=== PATIENT | male | born 1995 | race Caucasian/White ===

== ENCOUNTER → 2019-06-03 | Outpatient (CLI) | payer OTHER ==
--- NOTE | 2019-06-03 19:00 | REP ---
Clinical: Lower back pain. Technique: AP, lateral, bilateral oblique and coned-down views of the lumbosacral spine. Findings: Alignment and lordosis maintained. No acute fracture / compression injury or subluxation. No spondylolysis or spondylolisthesis. Lateral views demonstrate moderate disc space narrowing versus partial sacralization at the L5-S1 level. Impression: Moderate disc space narrowing versus partial sacralization at L5-S1. Otherwise normal lumbosacral spine radiograph series. Electronically Signed by Nahum Vu MD 06/03/2019 06:52 P
== END ==
LOC: M LRY 17:11
PROVIDERS: ATTEND Physician Assistant
DX: S39.92XA Unspecified injury of lower back, initial encounter (principal); M54.5 Low back pain; X58.XXXA Exposure to other specified factors, initial encounter; Y92.9 Unspecified place or not applicable
CPT/HCPCS: 72110; 96372; G0463; J1885

== ENCOUNTER → 2019-11-04 | Outpatient (CLI) | payer OTHER ==
[~2019-11-04] MED LIST: FLON1SPR NARES; GASTROGRAFIN SOLUTION 30ML (Q9963) As Ordered ONE; ISOVUE-370 76% 100ML VIAL (Q9967) As Ordered ONE; ZYRTTAB8 PO
--- NOTE | 2019-11-04 11:47 | REPVR ---
PROCEDURE INFORMATION: Exam: CT Neck With Contrast Exam date and time: 11/04/2019 10:58 AM Age: 24 years old Clinical indication: Pain; Other: Lyphadenopathy; Additional info: Lyphadenopathy, eval for possible lymphoma TECHNIQUE: Imaging protocol: Computed tomography images of the neck with intravenous contrast. Radiation optimization: All CT scans at this facility use at least one of these dose optimization techniques: automated exposure control; mA and/or kV adjustment per patient size (includes targeted exams where dose is matched to clinical indication); or iterative reconstruction. Contrast material: ISOVUE 370; Contrast volume: 100 ml; Contrast route: IV; COMPARISON: No relevant prior studies available. FINDINGS: Nasopharynx: Unremarkable. Oropharynx: Unremarkable. No significant tonsillar enlargement. Hypopharynx: Unremarkable Larynx: Unremarkable. Normal epiglottis. Retropharyngeal space: Unremarkable. Submandibular/Parotid glands: Normal. Glands are normal in size. Thyroid: Normal. No enlarged or calcified nodules. Lymph nodes: Unremarkable. No lymphadenopathy. Trachea: Visualized trachea is unremarkable. Lungs: Unremarkable as visualized. Bones/joints: Unremarkable. No acute fracture. Soft tissues: Unremarkable. No significant soft tissue swelling. IMPRESSION: No acute findings. Specifically, no worrisome cervical lymphadenopathy. Electronically signed by: Jackie Vaughn On 11/04/2019 11:47:23 AM
--- NOTE | 2019-11-04 12:20 | REP ---
CT of the chest with IV contrast for lymphadenopathy: There are no comparison chest CT studies. There is no mediastinal, hilar or axillary lymph node enlargement. There are no infiltrates or pleural effusions. There are no lung masses or nodules. The thoracic aorta is unremarkable. Cardiac size is normal. There is no pericardial effusion. There are no lytic, blastic or destructive skeletal changes. Impression: Essentially negative CT study of the chest. There is no lymph node enlargement. Electronically Signed by Cholo Newton MD 11/04/2019 12:11 P
--- NOTE | 2019-11-04 12:25 | REP ---
CT of the abdomen with IV and oral contrast for lymphadenopathy. The pelvis is not included. There are no comparison studies. The studies performed contiguously with the chest CT this same date. There is minimal subcutaneous and intraperitoneal body fat. There is no retroperitoneal/periaortic lymph node enlargement. There is no mesenteric lymph node enlargement. The hepatic parenchyma, gallbladder, pancreas and spleen are unremarkable. The adrenals, kidneys and abdominal aorta are unremarkable. The visualized bowel loops and mesentery are unremarkable. There are no lytic, blastic or destructive skeletal changes. Impression: There is no lymph node enlargement. Otherwise, negative CT study of the abdomen. The pelvis is not included. Electronically Signed by Cholo Newton MD 11/04/2019 12:16 P
== END ==
LOC: M RAD 09:20
PROVIDERS: ATTEND Internal Medicine Hematology
DX: R59.1 Generalized enlarged lymph nodes (principal)
CPT/HCPCS: 70491; 71260; 74160; Q9963; Q9967